=== PATIENT | male | born 1935 | race Caucasian/White ===

== ENCOUNTER → 2018-11-27 | Day surgery (SDC) | payer BC ==
[2018-11-23 10:53] LABS: BASOPHILS % 0.5 % (0.0-1.0); EOSINOPHILS # (AUTO) 0.3 (0.0-0.4); EOSINOPHILS % 4.7 % (0.0-6.0); HEMATOCRIT 40.2 % (38.2-49.6); HEMOGLOBIN 13.3 g/dL (14.0-18.0); LYMPHOCYTES # (AUTO) 1.8 (1.0-3.2); LYMPHOCYTES % 27.4 % (18.0-39.1); MEAN CORPUSCULAR HEMOGLOBIN 30.1 pg (28-32); MEAN CORPUSCULAR HGB CONC 33.1 g/dL (31-35); MONOCYTES # (AUTO) 0.7 (0.2-0.8); MONOCYTES % 10.2 % (4.4-11.3); NEUTROPHILS # (AUTO) 3.8 (2.1-6.9); NEUTROPHILS % 56.9 % (38.7-80.0); PLATELET COUNT 155 x10e3/uL (140-360); RED BLOOD COUNT 4.42 x10e6/uL (4.3-5.7); RED CELL DISTRIBUTION WIDTH 13.7 % (11.7-14.4)
[2018-11-23 11:23] LABS: ALBUMIN 3.9 g/dL (3.5-5.0); ALBUMIN/GLOBULIN RATIO 1.4 (0.8-2.0); ANION GAP 12.1 mmol/L (8-16); CALCIUM 9.6 mg/dL (8.4-10.2); CREATININE, SERUM 1.47 mg/dL (0.72-1.25); POTASSIUM 4.1 mmol/L (3.5-5.1)
--- NOTE | 2018-11-23 16:30 | NUR ---
Dr. Welch notified of creatinine 1.47 and eGFR 46. no new orders at this time.
[2018-11-27] VITALS (7 sets, daily range): BP systolic 153–197; BP diastolic 64–96
[~2018-11-27] VITALS: Ht 177.8 cm; Wt 90.7 kg
[~2018-11-27] MED LIST: ALLOPURINOL PO; ALLOPURINOL300 MG PO; ALPRAZOLAM 0.5 MG TAB ONE; AMLODIPINE BESYL5 MG PO; ASPIR 8181 MG PO; AZITHROMYCIN 500MG/NS 250 ML 250 ML ONE; AZOR 5-40 MG T1 EACH PO; Aspirin PO; BENICAR20 MG PO; CEFDINIR300 MG PO; CEFTRIAXONE SOD 1 GM/NS 50 ML 50 ML IV ONE; CREON DR 24,001 EACH PO; CREON PO; D 3 PO; DIPHENHYDRAMINE HCL 25 MG CAP ONE; DOXAZOSIN MESYLA1 MG PO; DOXAZOSIN MESYLA2 MG PO; FENTANYL CITRATE/PF 100MCG/2 ML INJ ONE; FERROUS PO; FUROSEMIDE20 MG PO; GABAPENTIN300 MG PO; GLIPIZIDE XL5 MG PO; HEPARIN SOD (PORCINE) 1000 UNIT/ML 30ML ONE; HEPARIN SOD/SOD CHLORIDE 2,000 ML ONE; HYDRALAZINE HCL25 MG PO; HYDROCHLOROTHIA25 MG PO; IOPAMIDOL 370 MG/ML 200 ML INFUS..BTL INJ ONE; LAXATIVE5 M1 PO; LIDOCAINE HCL 2% LOCAL 20 ML VIAL ONE; LIPITOR40 MG PO; METOPROLOL SUCC25 MG PO; MIDAZOLAM HCL 2 MG/2 ML VIAL ONE; MUCINEX DM ER1 EACH PO; NIFEDIPINE ER30 M1 PO; NIFEDIPINE ER60 MG PO; NITROGLYCERIN/D5W 200 MCG/ML 250 ML ONE; RANITIDINE HCL150 M1 PO; SODIUM CHLORIDE 0.9% 1000ML 1,000 ML ONE; SODIUM CHLORIDE 0.9% 250ML 250 ML ONE; STOOL SOFTENER250 MG PO; SUCRALFATE1 GM PO; VERAPAMIL HCL 2.5 MG/ML 2 ML VIAL ONE; VITAMIN D350000 UNIT PO; ZITHROMAX500 MG PO
--- NOTE | 2018-11-27 11:45 | NUR ---
pt in ACU 10, prepped for procedure. Alert oriented and appropriate, PERRLA, respirations even and unlabored to room air. Pulses x4 extremities equal and faint. + allens to right radial. Cap fill brisk < 3 sec. [place] bilateral Skin warm and dry integrity appears intact in general. IV 20g to left forearm started and presents healthy w/o s/s of infiltration or complaint. NS 0.9% started at 100ml/hr per dial flow. Abdomen soft and supple. pt offered toileting, denies need to urinate or defecate. Personal affects with patient. Family at bedside. Pt and family verbalizes understanding of POC. Pre-Op Meds benadryl and xanax given. bed low and locked, side rails up x2 and call light at side. -cgf
--- NOTE | 2018-11-27 15:00 | NUR ---
Attempt to remove 2ml from TR band. immediate bleed back, air reinstilled. continue to observe. + neurovascular function present. pt arouses and quickly back to rest
--- NOTE | 2018-11-27 15:35 | NUR ---
2nd Attempt to remove 2ml from TR band. immediate bleed back, air reinstilled. continue to observe. + neurovascular function present. pt arouses and quickly back to rest
--- NOTE | 2018-11-28 03:02 | Operative Report ---
DATE OF PROCEDURE: 11/27/2018 SURGEON: Lev Welch MD INDICATIONS: 1. Coronary artery disease with abnormal stress test. 2. Peripheral arterial disease with claudication. PROCEDURES PERFORMED: 1. Left heart catheterization, selective coronary angiography. 2. Abdominal aortogram. 3. Selective catheter placed in the right radial artery to the left iliac artery (third-order catheter placement with unilateral extremity angiogram). 4. Deployment of right groin TR band. COMPLICATIONS: None. RECOMMENDATIONS: Referral for coronary artery bypass surgery, staged intervention of the aorta and iliac arteries. DESCRIPTION OF PROCEDURE: Access obtained in the right radial artery. 5-Portuguese sheath was placed. Coronary angiography demonstrated heavily calcified coronary arteries, left main 50% stenosis and ostial circumflex 90% stenosis. Ramus intermedius and obtuse margin have mild disease. Left anterior descending artery proximal 90% stenosis. Diagonal artery ostial 90% stenosis. 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 Right coronary artery heavily calcified, 80% proximal and 50% mid stenosis. LV end-diastolic pressure of 4. No gradient across the aortic valve on pullback. 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 Left iliac artery appeared to have a stenosis. The catheter then advanced in the right radial artery. The left iliac artery has 80% stenosis. The left common iliac artery heavily calcified. Bilateral femoral popliteal arteries and diffuse 50% to 60% stenosis. Two-vessel runoff to both legs. No intervention was deemed necessary at this point. Right wrist TR band applied. The patient was discharged home same day with instructions for close followup and referral for coronary artery bypass surgery. MD MICHAEL Payne/DANGL /[id number]
--- OUTSIDE RECORDS SUMMARY | 2018-11-28 10:10 | XMS REPORT | Encounter Summary ---
Author Organization Unknown Address [address] [place] [address] Phone [phone] Reason for Visit Medical Complaint Instructions 1. Leukocytes in urine urinalysis, dipstick culture, urine Levaquin 500 mg tablet urinary tract infections in men: care instructions 2. Elevated blood pressure elevated blood pressure: care instructions dash diet: care instructions blood pressure monitoring education 3. Body mass index 25-29 - overweight learning about healthy weight Discussion Note: None recorded. Plan of Care Patient Instructions A urinary tract infection, or UTI, is a general term for an infection anywhere between the kidneys and the urethra (where urine comes out). Most UTIs are bladder infections. They often cause pain or burning when you urinate. UTIs are caused by bacteria and can be cured with antibiotics. Be sure to complete your treatment so that the infection goes away. How can you care for yourself at home? Take your antibiotics as directed. Do not stop taking them just because you feel better. You need to take the full course of antibiotics. Drink extra water and other fluids for the next day or two. This may help wash out the bacteria that are causing the infection. (If you have kidney, heart, or liver disease and have to limit fluids, talk with your doctor before you increase your fluid intake.) Avoid drinks that are carbonated or have caffeine. They can irritate the bladder. Urinate often. Try to empty your bladder each time. To relieve pain, take a hot bath or lay a heating pad set on low over your lower belly or genital area. Never go to sleep with a heating pad in place. To prevent UTIs Drink plenty of water each day. This helps you urinate often, which clears bacteria from your system. (If you have kidney, heart, or liver disease and have to limit fluids, talk with your doctor before you increase your fluid intake.) Urinate when you need to. Urinate right after you have sex. Change sanitary pads often. Avoid douches, bubble baths, feminine hygiene sprays, and other feminine hygiene products that have deodorants. After going to the bathroom, wipe from front to back. When should you call for help? Call your doctor now or seek immediate medical care if: Symptoms such as fever, chills, nausea, or vomiting get worse or appear for the first time. You have new pain in your back just below your rib cage. This is called flank pain. There is new blood or pus in your urine. You have any problems with your antibiotic medicine. Watch closely for changes in your health, and be sure to contact your doctor if: You are not getting better after taking an antibiotic for 2 days. Your symptoms go away but then come back. Reminders Provider Appointments None recorded. Lab Urinalysis, Dipstick 06/04/2018 [facility] Culture, Urine 06/04/2018 [facility] Referral None recorded. Procedures None recorded. Surgeries None recorded. Imaging None recorded. Medications Name Start Date allopurinol 300 mg tablet TK 1 T PO QD amlodipine 5 mg tablet TK 1 T PO QD atorvastatin 40 mg tablet TK 1 T PO HS cefadroxil 500 mg capsule Creon 24,000-76,000-120,000 unit capsule,delayed release TK ONE C PO TID doxazosin 4 mg tablet TK 1 T PO HS gabapentin 300 mg capsule glipizide ER 5 mg tablet, extended release 24 hr TK 1 T PO BID Levaquin 500 mg tablet Take 1 tablet every 24 hours by oral route for 14 days. losartan 50 mg tablet metoprolol succinate ER 25 mg tablet,extended release 24 hr TK 1 T PO QD mupirocin 2 % topical ointment ranitidine 150 mg tablet TK 1 T PO BID SF 5000 Plus 1.1 % dental cream U UTD sucralfate 1 gram tablet TK 1 T PO TID Medications Administered None recorded. Vitals Height Weight BMI Blood Pressure 5 ft 10 in 200 lbs 28.7 kg/m2 132/84 mm[Hg] Lab Results Date Name Specimen Result Interpretation Description Value Range Status Address Urinalysis, Dipstick Color : Isabel [facility]: [address] [place] [address] Clarity : Turbid [facility]: [address] [place] [address] Leukocytes : Large [facility]: [address] [place] [address] Nitrites : Negative [facility]: [address] [place] [address] Urobilinogen : Normal [facility]: 9 [facility] Protein : 300 [facility]: 9 [facility] Ph : 5.0 [facility]: 9 [facility] Blood : Large [facility]: 9 [facility] Specific [place] : 1.010 [facility]: 9 [facility] Ketones : Negative [facility]: 9 [facility] Bilirubin : Negative [facility]: 9 [facility] Glucose Negative [facility]: 9 [facility] Allergies Code Code System Name Reaction Severity Status Onset Penicillins Active Problems Name Status Onset Date Source Diabetes Mellitus Active 06/04/2018 Hyperlipidemia Active 06/04/2018 Gout Active 06/04/2018 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 History of Present Illness [id number] Reported By: Patient HPI: Duration: started 1 day. Context: no prior history of STDs, no known exposure to STD. Associated Symptoms: no muscle aches, no fever/chills, no headache, no penile lesions/sores, no scrotal lesions/sores, no penile discharge, no flank pain, no jaundice, no blood in the urine, no pain during urination, urinary frequency; pt has hx of BPH Review of Systems:ROS as noted in the HPI Review of Systems Basic Reported By: Patient Physical Exam Adult Basic, Adult Male Complete Reported By: Patient Constitutional: General Appearance: healthy-appearing, well-nourished, well-developed, overweight. Level of Distress: NAD. Ambulation: ambulating normally Lungs: Respiratory effort: no dyspnea, no tachypnea, no use of accessory muscles, no intercostal retractions. Auscultation: breath sounds normal, good air movement Cardiovascular: Heart Auscultation: no murmurs, regularly irregular Abdomen: Inspection and Palpation: soft, no tenderness, no guarding, no rebound tenderness, no masses, no CVA tenderness
--- OUTSIDE RECORDS SUMMARY | 2018-11-28 10:10 | XMS REPORT | Summary of Care ---
Author Author ELISEO TRUJILLO M.D. Unknown Address [facility] Phone Unavailable Care Team Providers Care Foam Tank Laminator Name Role Phone ELISEO TRUJILLO M.D. Unavailable Unavailable KHADRA PERALTA MD Unavailable ELISEO TRUJILLO MD Unavailable Unavailable Unavailable Unavailable Functional Status Name Dates Details Functional status health issues are not documented Status: Name Dates Details Cognitive status health issues are not documented Status: Problems Name Dates Details High blood pressure (401.9, I10) Status: Active Bilateral impacted cerumen (380.4, H61.23) Status: Active Bilateral hearing loss (389.9, H91.93) Status: Active Medications Name Dates Details Metoprolol Succinate ER TB24 Active amLODIPine Besylate TABS * Refills: 0 Active Gabapentin TABS * Refills: 0 Active Atorvastatin Calcium TABS * Refills: 0 Active Doxazosin Mesylate TABS * Refills: 0 Active Allopurinol TABS * Refills: 0 Active glipiZIDE TABS * Refills: 0 Active Sucralfate TABS * Refills: 0 Active Allergies and Adverse Reactions Name Dates Details Allergy history not documented Status: Procedures Procedure Dates Details [O] Basic Audiometry Screen Date: 14-Nov-2018 History of Knee Replacement Completed History of Heart Surgery Completed History of Gallbladder Surgery Completed Immunization Name Dates Details Immunizations not documented Family History Name Dates Details No pertinent family history (V49.89, Z78.9) Comments: Other Status: Active Social History Name Dates Details - Status: Name Dates Details Never smoker Vital Signs Date Test Result Details [id number] Weight 205.125 lb Status: Height 70 in Status: Body Mass Index Calculated 29.43 kg/m2 Status: Body Surface Area Calculated 2.11 m2 Status: Results Date Description Value Details Results not documented Plan of Care Name Dates Details Planned Observations Planned Goals not documented Planned Encounters Appointment; IAN CUMMINGS On: 27-Nov-2018 14:00 Interventions Provided Labs/Procedures/Imaging* [O] Basic Audiometry Screen; To Be Done: 14 Nov 2018 * Tobacco Use Screening; Done: 14 Nov 2018 Plan* 1. Cerumen removed. Obtain ATR. Fu after testing. Instructions Name Dates Details Instructions not documented Encounters Appointment; ELISEO TRUJILLO M.D. Encounter Diagnosis: Problem not documented On: 14-Nov-2018 14:45
--- OUTSIDE RECORDS SUMMARY | 2018-11-28 10:10 | XMS REPORT | Continuity of Care Document ---
Author Author [employer] Address Unknown Phone Unavailable Care Team Providers Care Air Brake Adjuster Name Role Phone Zumobi Unavailable Unavailable Problems Problem Status Onset Date Classification Date Reported Comments Source Body mass index 25-29 - overweight 06/04/2018 Diagnosis 06/04/2018 [facility] Elevated blood pressure 06/04/2018 Diagnosis 06/04/2018 [facility] Leukocytes in urine 06/04/2018 Diagnosis 06/04/2018 [facility] Diabetes mellitus 06/04/2018 Problem 06/04/2018 [facility] Hyperlipidemia 06/04/2018 Problem 06/04/2018 [facility] Gout 06/04/2018 Problem 06/04/2018 [facility] Hypertelorism 06/04/2018 Problem 06/04/2018 [facility] Medications Medication Details Route Status Patient Instructions Ordering Provider Order Date Source Allopurinol 300 MG Oral Tablet allopurinol 300 mg tablet TK 1 T PO QD Active [facility] Amlodipine 5 MG Oral Tablet amlodipine 5 mg tablet TK 1 T PO QD Active [facility] atorvastatin 40 MG Oral Tablet atorvastatin 40 mg tablet TK 1 T PO HS Active [facility] Cefadroxil 500 MG Oral Capsule cefadroxil 500 mg capsule Active [facility] Amylases 464811 UNT / Endopeptidases 13082 UNT / Lipase 34185 UNT Delayed Release Oral Capsule [Creon] Creon 24,000-76,000-120,000 unit capsule,delayed release TK ONE C PO TID Active [facility] Doxazosin 4 MG Oral Tablet doxazosin 4 mg tablet TK 1 T PO HS Active [facility] gabapentin 300 MG Oral Capsule gabapentin 300 mg capsule Active [facility] 24 HR Glipizide 5 MG Extended Release Oral Tablet glipizide ER 5 mg tablet, extended release 24 hr TK 1 T PO BID Active [facility] Levofloxacin 500 MG Oral Tablet [Levaquin] Levaquin 500 mg tablet Take 1 tablet every 24 hours by oral route for 14 days. Active [facility] Losartan Potassium 50 MG Oral Tablet losartan 50 mg tablet Active [facility] 24 HR metoprolol succinate 25 MG Extended Release Oral Tablet metoprolol succinate ER 25 mg tablet,extended release 24 hr TK 1 T PO QD Active [facility] Mupirocin 0.02 MG/MG Topical Ointment mupirocin 2 % topical ointment Active [facility] Ranitidine 150 MG Oral Tablet ranitidine 150 mg tablet TK 1 T PO BID Active [facility] Sodium Fluoride 0.011 MG/MG Toothpaste SF 5000 Plus 1.1 % dental cream U UTD Active [facility] Sucralfate 1000 MG Oral Tablet sucralfate 1 gram tablet TK 1 T PO TID Active [facility] Allergies, Adverse Reactions, Alerts Substance Category Reaction Severity Reaction type Status Date Reported Comments Source Penicillins Allergy to substance 06/04/2018 [facility] Immunizations Immunization Date Given Site Status Last Updated Comments Source influenza, injectable, quadrivalent 04/14/2018 completed [facility] Results Order Name Results Value Reference Range Date Interpretation Comments Source Urinalysis macro (dipstick) panel - Urine COLOR : Isabel 06/04/2018 [facility] Urinalysis macro (dipstick) panel - Urine CLARITY : Turbid 06/04/2018 [facility] Urinalysis macro (dipstick) panel - Urine LEUKOCYTES : Large 06/04/2018 [facility] Urinalysis macro (dipstick) panel - Urine NITRITES : Negative 06/04/2018 [facility] Urinalysis macro (dipstick) panel - Urine UROBILINOGEN : Normal 06/04/2018 [facility] Urinalysis macro (dipstick) panel - Urine PROTEIN : 300 06/04/2018 [facility] Urinalysis macro (dipstick) panel - Urine pH : 5.0 06/04/2018 [facility] Urinalysis macro (dipstick) panel - Urine BLOOD : Large 06/04/2018 [facility] Urinalysis macro (dipstick) panel - Urine SPECIFIC GRAVITY : 1.010 06/04/2018 [facility] Urinalysis macro (dipstick) panel - Urine KETONES : Negative 06/04/2018 [facility] Urinalysis macro (dipstick) panel - Urine BILIRUBIN : Negative 06/04/2018 [facility] Urinalysis macro (dipstick) panel - Urine GLUCOSE Negative 06/04/2018 [facility] Pathology Reports No Data Provided for This Section Diagnostic Reports No Data Provided for This Section Consultation Notes No Data Provided for This Section Discharge Summaries No Data Provided for This Section History and Physicals No Data Provided for This Section Vital Signs Vital Sign Value Date Comments Source Diastolic (mm Hg) 84 06/04/2018 [facility] Height 70 06/04/2018 [facility] Systolic (mm Hg) 132 06/04/2018 [facility] Weight 200 06/04/2018 [facility] Encounters Location Location Details Encounter Type Encounter Number Reason For Visit Attending Provider ADM Date DC Date Status Source [place] - [facility] - [id number] [facility]P-C: [address] [place] [address], Ph. [id number] Krystina Mackeywe 06/04/2018 [facility] [place] - [facility] - [id number] Krystina Rashid, LAWN SPRINKLER INSTALLER-C: [address] [place] [address], Ph. [id number] Krystina Mackeywe 06/04/2018 [facility] Procedures Procedure Code Date Perfomer Comments Source Cholecystectomy [facility] Assessment and Plan No Data Provided for This Section Plan of Care No Data Provided for This Section Social History Social History Date Source Smoking Status Never Smoker 06/04/2018 [facility] Family History No Data Provided for This Section Advance Directives No Data Provided for This Section Functional Status No Data Provided for This Section
--- OUTSIDE RECORDS SUMMARY | 2018-11-28 10:10 | XMS REPORT | Encounter Summary ---
Author Organization Unknown Address [address] [place] [address] Phone [phone] Reason for Visit Medical Complaint Instructions 1. [...] Urinalysis, Dipstick Color : Isabel [facility]: [address] [place] [address] Clarity : Turbid [facility]: [address] [place] [address] Leukocytes : Large [facility]: [address] [place] [address] Nitrites : Negative [facility]: [address] [place] [address] Urobilinogen : Normal [facility]: [facility] Protein : 300 [facility]: 9 [facility] Ph : 5.0 [facility]: [facility] Blood : Large [facility]: 9 [facility] Specific [place] : 1.010 [facility]: [facility] Ketones : Negative [facility]: [facility] Bilirubin : Negative [facility]: [facility] Glucose Negative [facility]: 9 [facility] Allergies Code Code System Name Reaction Severity [...] Index 25-29 - Overweight [facility]: [address] [place] [address], Ph. History of Present Illness [id number] Reported By: Patient HPI: Duration: started 1 [...] normal, good air movement Cardiovascular: Heart Auscultation: RRR, no murmurs Abdomen: Inspection and Palpation: soft, no tenderness, no guarding, no rebound tenderness, no masses, no CVA tenderness
--- OUTSIDE RECORDS SUMMARY | 2018-11-28 10:10 | XMS REPORT ---
Author Author [facility] Address Unknown Phone Unavailable Care Team Providers Care Event Management Consultant Name Role Phone Unavailable Unavailable Payers Payer Name Policy Type Policy Number Effective Date Expiration Date Problems This patient has no known problems. Allergies, Adverse Reactions, Alerts Allergy Name Allergy Type Status Severity Reaction(s) Onset Date Inactive Date Treating Clinician Comments Penicillins DA Active MARY 2014-12-31 00:00:00 Medications This patient has no known medications.
== END | disposition home or self-care (01) ==
LOC: CATH LAB 11:37
PROVIDERS: ATTEND Internal Medicine Interventional Cardiology
DX: I25.10 Atherosclerotic heart disease of native coronary artery without angina pectoris (principal); I70.213 Atherosclerosis of native arteries of extremities with intermittent claudication, bilateral legs; I25.41 Coronary artery aneurysm; I72.2 Aneurysm of renal artery; R94.39 Abnormal result of other cardiovascular function study; I11.0 Hypertensive heart disease with heart failure; I50.9 Heart failure, unspecified; I48.0 Paroxysmal atrial fibrillation; G47.33 Obstructive sleep apnea (adult) (pediatric); Z01.812 Encounter for preprocedural laboratory examination; Z79.01 Long term (current) use of anticoagulants; Z79.84 Long term (current) use of oral hypoglycemic drugs; Z79.82 Long term (current) use of aspirin; Z68.37 Body mass index [BMI] 37.0-37.9, adult
CPT/HCPCS: 36247; 36415; 75630; 80053; 85025; 93458; C1769 ×2; C1887; J1644; J2001; J2250; J3010; J7030; Q9967

== ENCOUNTER 2018-11-28 15:47 | Inpatient (IN) | payer BC, MEDICARE ==
[~2018-11-28] VITALS: Ht 167.6 cm; Wt 88.7 kg
[~2018-11-28 15:47] MED LIST changes: -ALPRAZOLAM 0.5 MG TAB ONE; -AZITHROMYCIN 500MG/NS 250 ML 250 ML ONE; -BENICAR20 MG PO; -CEFDINIR300 MG PO; -CEFTRIAXONE SOD 1 GM/NS 50 ML 50 ML IV ONE; -DIPHENHYDRAMINE HCL 25 MG CAP ONE; -FENTANYL CITRATE/PF 100MCG/2 ML INJ ONE; -HEPARIN SOD (PORCINE) 1000 UNIT/ML 30ML ONE; -HEPARIN SOD/SOD CHLORIDE 2,000 ML ONE; -HYDRALAZINE HCL25 MG PO; -IOPAMIDOL 370 MG/ML 200 ML INFUS..BTL INJ ONE; -LIDOCAINE HCL 2% LOCAL 20 ML VIAL ONE; -MIDAZOLAM HCL 2 MG/2 ML VIAL ONE; -MUCINEX DM ER1 EACH PO; -NIFEDIPINE ER30 M1 PO; -NIFEDIPINE ER60 MG PO; -NITROGLYCERIN/D5W 200 MCG/ML 250 ML ONE; -SODIUM CHLORIDE 0.9% 1000ML 1,000 ML ONE; -SODIUM CHLORIDE 0.9% 250ML 250 ML ONE; -VERAPAMIL HCL 2.5 MG/ML 2 ML VIAL ONE; -ZITHROMAX500 MG PO
--- OUTSIDE RECORDS SUMMARY | 2018-11-28 15:51 | XMS REPORT | Continuity of Care Document ---
Author Author [employer] Address Unknown Phone Unavailable Care Team Providers Care Senior Corporate Accountant Name Role Phone Qire Unavailable Unavailable Problems Problem Status Onset Date [...] cefadroxil 500 mg capsule Active [facility] Amylases 316087 UNT / Endopeptidases 75203 UNT / Lipase 73990 UNT Delayed Release Oral Capsule [Creon] Creon [...] Date Status Source [place] - [facility] - [id number] BRYAN العليP-C: [address] [place] [address], Ph. [id number] Krystina Mackeywe 06/04/2018 [facility] [place] - [facility] - [id number] Krystina Rashid, HEMOTHERAPIST-C: [address] [place] [address], Ph. [id number] Krystina Mackeywe 06/04/2018 [facility] Procedures Procedure Code [...]
[2018-11-28 17:50] LABS: BASOPHILS % 0.2 % (0.0-1.0); EOSINOPHILS # (AUTO) 0.1 (0.0-0.4); EOSINOPHILS % 0.4 % (0.0-6.0); HEMOGLOBIN 12.9 g/dL (14.0-18.0); LYMPHOCYTES # (AUTO) 1.2 (1.0-3.2); LYMPHOCYTES % 10.4 % (18.0-39.1); MEAN CORPUSCULAR HEMOGLOBIN 30.4 pg (28-32); MEAN CORPUSCULAR HGB CONC 33.9 g/dL (31-35); MEAN CORPUSCULAR VOLUME 89.6 fL (81-99); MONOCYTES # (AUTO) 0.8 (0.2-0.8); NEUTROPHILS # (AUTO) 9.7 (2.1-6.9); NEUTROPHILS % 81.5 % (38.7-80.0); PLATELET COUNT 144 x10e3/uL (140-360); RED BLOOD COUNT 4.24 x10e6/uL (4.3-5.7); RED CELL DISTRIBUTION WIDTH 13.7 % (11.7-14.4)
[2018-11-28 17:56] LABS: BILIRUBIN,URINE NEGATIVE (NEGATIVE); CLARITY,URINE SL CLOUDY (CLEAR); COLOR,URINE YELLOW (YELLOW); KETONES,URINE NEGATIVE (NEGATIVE); LEUKOCYTE ESTERASE ,URINE NEGATIVE (NEGATIVE); NITRITE,URINE NEGATIVE (NEGATIVE); PROTEIN,URINE DIPSTICK 2+ (NEGATIVE); URINE UROBILINOGEN 0.2 mg/dL (0.2 - 1)
[2018-11-28 18:00] LABS: INR 1.01; PROTHROMBIN TIME 13.8 seconds (11.9-14.5)
[2018-11-28 18:01] LABS: PARTIAL THROMBOPLASTIN TIME 31.2 seconds (23.8-35.5)
[2018-11-28 18:10] LABS: ALBUMIN 3.8 g/dL (3.5-5.0); ALBUMIN/GLOBULIN RATIO 1.5 (0.8-2.0); CALCIUM 9.8 mg/dL (8.4-10.2); CREATININE, SERUM 2.01 mg/dL (0.72-1.25)
[2018-11-28 18:14] LABS: CREATINE KINASE MB 1.1 ng/mL (0-5.0)
[2018-11-28 18:19] LABS: BACTERIA,URINE MANY /HPF; EPITHELIAL CELLS,URINE RARE /LPF; RBC,URINE 0-5 /HPF (0-5); WBC,URINE (MAN) 0-5 /HPF (0-5)
--- NOTE | 2018-11-28 19:20 | Diagnostic Imaging Report ---
EXAMINATION: CHEST 2 VIEWS INDICATION: ^fever COMPARISON: None FINDINGS: TUBES and LINES: None. LUNGS: Nodular opacities in the left upper lung worrisome for pneumonia. PLEURA: No pleural effusion or pneumothorax. HEART AND MEDIASTINUM: The cardiomediastinal silhouette is unremarkable. BONES AND SOFT TISSUES: No acute osseous lesion. Soft tissues are unremarkable. UPPER ABDOMEN: No free air under the diaphragm. IMPRESSION: Nodular opacities in left upper lung worrisome for pneumonia in the appropriate clinical context. If indicated CT scan may be of benefit. Follow-up imaging is indicated to document clearing. Signed by: Dr. Adolfo Ruiz M.D. on 11/28/2018 7:17 PM
[2018-11-28] MEDS ORDERED: ONDANSETRON HCL INJ 2MG/ML 2ML 2 MG/ML VIAL IV PRN (20:15)
[2018-11-28] MEDS: CEFTRIAXONE SOD 1 GM/NS 50 ML 50 ML IV SCH (21:30)
--- OUTSIDE RECORDS SUMMARY | 2018-11-28 21:59 | XMS REPORT | Continuity of Care Document ---
Author Author [employer] Address Unknown Phone Unavailable Care Team Providers Care Job Coach Name Role Phone DVTel Unavailable Unavailable Problems Problem Status Onset Date [...] cefadroxil 500 mg capsule Active [facility] Amylases 545902 UNT / Endopeptidases 52287 UNT / Lipase 48009 UNT Delayed Release Oral Capsule [Creon] Creon [...] Date Status Source [place] - [facility] - [id number] BRYAN العليP-C: [address] [place] [address], Ph. [id number] Krystina Mackeywe 06/04/2018 [facility] [place] - [facility] - [id number] Krystina Rashid, ROVING MACHINE OPERATOR-C: [address] [place] [address], Ph. [id number] Krystina Mackeywe 06/04/2018 [facility] Procedures Procedure Code [...]
[2018-11-28] MEDS: AZITHROMYCIN 500MG/NS 250 ML 250 ML IV SCH (22:11)
[2018-11-29] VITALS (12 sets, daily range): BP systolic 138–202; BP diastolic 64–100
--- NOTE | 2018-11-29 00:30 | NUR ---
Patient arrived from the ER on stretcher admitted for fever/pneumonia. A/Ox3 with VS stable with BP at 174/100. Patient stated he had heart cath a couple of days ago and supposedly have a quadruple bypass today (11/29/2018) at the [facility]. The patient is on telemetry #16 with SR/bigeminal/PAC/PVC. Call light within reach, bed height low, wheels lock, and side rails up x2.
--- NOTE | 2018-11-29 06:29 | Diagnostic Imaging Report ---
Examination: Single AP view of the chest. COMPARISON: 11/28/2018 INDICATION: Fever DISCUSSION: The lungs remain well-inflated. Nodular opacities in the left upper lung are again noted and may be calcified. No new consolidation or effusion. Stable cardiomediastinal contour with tortuosity and atherosclerotic calcification of the thoracic aorta. No overt pulmonary edema. No acute osseous abnormality. IMPRESSION: Unchanged left upper lung nodular opacities. Considerations include active infection or sequela of prior granulomatous disease. Follow-up chest x-ray in 8 weeks is suggested to document stability or resolution as previously discussed. Signed by: Dr. Kodi Lopez M.D. on 11/29/2018 6:26 AM
--- NOTE | 2018-11-29 07:02 | NUR ---
RECEIVED PATIENT RESTING IN BED. NO ACUTE DISTRESS NOTED. DENIES PAIN OR DISCOMFORT. CALL LIGHT WITHIN REACH. BED IN THE LOWEST POSITION.
[2018-11-29 07:03] LABS: BASOPHILS % 0.1 % (0.0-1.0); EOSINOPHILS # (AUTO) 0.2 (0.0-0.4); HEMOGLOBIN 12.3 g/dL (14.0-18.0); LYMPHOCYTES # (AUTO) 1.7 (1.0-3.2); MEAN CORPUSCULAR HEMOGLOBIN 30.5 pg (28-32); MEAN CORPUSCULAR HGB CONC 34.2 g/dL (31-35); MEAN CORPUSCULAR VOLUME 89.3 fL (81-99); MONOCYTES # (AUTO) 0.9 (0.2-0.8); MONOCYTES % 10.2 % (4.4-11.3); NEUTROPHILS # (AUTO) 6.2 (2.1-6.9); NEUTROPHILS % 68.3 % (38.7-80.0); PLATELET COUNT 140 x10e3/uL (140-360); RED BLOOD COUNT 4.03 x10e6/uL (4.3-5.7); RED CELL DISTRIBUTION WIDTH 13.9 % (11.7-14.4)
[2018-11-29 07:20] LABS: ANION GAP 10.7 mmol/L (8-16); CALCIUM 9.2 mg/dL (8.4-10.2); CREATININE, SERUM 1.66 mg/dL (0.72-1.25); POTASSIUM 3.7 mmol/L (3.5-5.1)
[2018-11-29 07:29] LABS: CREATINE KINASE MB 1.3 ng/mL (0-5.0)
[2018-11-29] MEDS ORDERED: SODIUM CHLORIDE 0.9% 250ML 250 ML ONE (08:20)
[2018-11-29] MEDS: AZITHROMYCIN 500MG/NS 250 ML 250 ML IV SCH (09:10)
[2018-11-29] MEDS ORDERED: ACETAMINOPHEN/CODEINE 300MG - 30MG TAB PO PRN (09:30)
[2018-11-29] MEDS ORDERED: ACETAMINOPHEN 325 MG TAB PO PRN (09:30)
[2018-11-29] MEDS ORDERED: MELATONIN 5 MG TABLET PO PRN (09:30)
[2018-11-29] MEDS ORDERED: ALBUTEROL/IPRATROPIUM 3 ML NEB NEB PRN (10:00)
[2018-11-29] MEDS ORDERED: AMLODIPINE BESYLATE 5 MG TAB PO SCH (10:30)
[2018-11-29] MEDS: METOPROLOL SUCCINATE 25 MG TAB XL PO SCH (10:57)
[2018-11-29] MEDS: GUAIFENESIN 600MG/DEXTROMETHORPHAN 30MG TABSR PO SCH ×2 (10:57→20:39)
--- NOTE | 2018-11-29 10:57 | NUR ---
Patient's BP 164/82 morning dose of Metoprolol 25mg PO and Amlodipine 5mg PO administered at this time. Will continue to monitor.
[2018-11-29] MEDS: SUCRALFATE 1 GM TAB PO SCH ×2 (10:58→16:12)
[2018-11-29] MEDS ORDERED: ONDANSETRON HCL 4 MG ORAL DISINTEGRATING TAB PO PRN (11:15)
[2018-11-29] MEDS ORDERED: DEXTROSE 50% SYRINGE 50 ML IV PRN (12:15)
[2018-11-29] MEDS: HYDRALAZINE HCL 20 MG/ML VIAL IV PRN ×2 (12:37→23:44)
--- NOTE | 2018-11-29 12:37 | NUR ---
Patient's BP 182/72, hydralazine 10mg IV PRN administered at this time. Will continue to monitor.
[2018-11-29] MEDS: ALBUTEROL/IPRATROPIUM 3 ML NEB NEB SCH ×2 (14:30→20:07)
--- NOTE | 2018-11-29 14:31 | NUR ---
PT WOULD LIKE TO BE HHOME FOR A FOOTBALL GAME TUESDAY THAT IS NOT ON ONE OF OUR CHANNELS
[2018-11-29] MEDS: GABAPENTIN 300 MG CAP PO SCH ×2 (14:51→20:39)
[2018-11-29] MEDS ORDERED: CLONIDINE HCL 0.1 MG TAB PO NR (16:00)
[2018-11-29 16:08] LABS: CREATINE KINASE MB 1.7 ng/mL (0-5.0)
[2018-11-29] MEDS: FAMOTIDINE 20 MG TAB PO SCH (16:12)
--- NOTE | 2018-11-29 16:12 | NUR ---
Notified patient's that our pharmacy does not carry medication Creon but ok to continue home medication. Ask to bring in medication and will bring it to pharmacy to be verified and ok to use.
--- NOTE | 2018-11-29 16:12 | NUR ---
Patient's BP 178/64, notified NASIM Umanzor new order received for Clonidine 0.1mg PO x one dose. Medication administered at this time.
[2018-11-29] MEDS: GLIPIZIDE 5 MG TAB ER PO SCH (16:13)
[2018-11-29] MEDS: DOCUSATE SODIUM 100 MG CAP PO SCH (16:13)
[2018-11-29] MEDS: INSULIN LISPRO 100 UNIT/1 ML 3ML VIAL SQ SCH ×2 (16:13→20:40)
[2018-11-29] MEDS ORDERED: AMYLASE PO SCH (17:00)
[2018-11-29] MEDS ORDERED: AMLODIPINE BESYLATE 5 MG TAB PO NR (17:00)
[2018-11-29] MEDS ORDERED: PROTEASE PO SCH (17:00)
[2018-11-29] MEDS ORDERED: LIPASE PO SCH (17:00)
[2018-11-29] MEDS: OLMESARTAN 20 MG TAB PO SCH (17:03)
--- NOTE | 2018-11-29 17:03 | NUR ---
Dr. Vadim Gregory rounded on patient. He was notified of BPs being elevated even though scheduled medications, PRN, and one time dose Clonidine administered. MDgave order for one time dose of Amlodipine 5mg PO, also started patient on Olmesartan 40mg daily starting now. Both medications administered at this time as ordered. Will continue to monitor.
--- NOTE | 2018-11-29 19:15 | NUR ---
REPORT GIVEN TO ONCOMING NURSE. WALKING ROUNDS DONE. PATIENT IS RESTING IN BED. NO ACUTE DISTRESS NOTED AT THIS TIME. NO S/S OF PAIN NOTED. CALL LIGHT WITHIN REACH. BED IN THE LOWEST POSITION.
--- NOTE | 2018-11-29 19:19 | NUR ---
PT IS RESTING IN BED BUT HAS INTERMITTENT CONFUSION . RESPIRATION IS EVEN AND UNLABORED, NO DISTRESS NOTED. BED IN THE LOWEST POSITION, LOCKED, AND BED ALARM ON, AND CALL LIGHT WITHIN REACH. PT REFUSE TO HAVE SCD'S ON. EDUCATED PT ON THE NEED TO KEEP SCD'S, BUT PT STILL REFUSE. WILL CONTINUE TO MONITOR.
--- NOTE | 2018-11-29 20:22 | Consultation ---
DATE OF CONSULTATION: 11/29/2018 Cardiology Consult Note REASON FOR CONSULT: Coronary artery disease and hypertension. CHIEF COMPLAINT: Fever. HISTORY OF PRESENT ILLNESS: The patient is an 83-year-old man, history of CAD, who was recently cath 2 days ago with coronary angiogram showing multivessel CAD requiring outpatient coronary artery bypass graft surgery. However, yesterday at home, he developed some fevers and generally was feeling unwell, so he was sent to the hospital for further evaluation. Currently says he feels a little bit better. No chest pain. No shortness of breath. No palpitations or syncope. No heart failure symptoms. REVIEW OF SYSTEMS: As above, otherwise negative. OUTPATIENT MEDICATIONS: Reviewed. ALLERGIES: REVIEWED. SOCIAL HISTORY: Does not smoke, drink, or abuse drugs. FAMILY HISTORY: Noncontributory. PAST MEDICAL HISTORY: 1. Hypertension. 2. Hyperlipidemia. 3. Diabetes. 4. Coronary artery disease. PHYSICAL EXAMINATION: VITAL SIGNS: Temperature afebrile, pulse 64, respiratory rate 13, blood pressure 178/64, and saturating 96%. GENERAL: Elderly white man, in no acute distress. CARDIOVASCULAR: Regular rate and rhythm. No murmurs, rubs, or gallops. LUNGS: Clear to auscultation bilaterally. ABDOMEN: Soft, nontender, and nondistended. NEURO AND PSYCH: Alert and oriented to person, place, and time. Normal affect. INPATIENT MEDICATIONS: Reviewed. LABORATORY DATA: Reviewed. Shows white count of 11.9 on admission, which is now improved. Troponin negative x1. IMAGING DATA: Reviewed. Chest x-ray shows nodular opacities in the left upper lung, recent for pneumonia. TELEMETRY DATA: Reviewed. Shows normal sinus rhythm. ASSESSMENT: 1. Multivessel coronary artery disease, awaiting outpatient coronary artery bypass grafting. 2. Hypertension. 3. Hyperlipidemia. PLAN: The patient is doing well from a cardiovascular standpoint. We will resume his home outpatient medications including olmesartan, amlodipine, and metoprolol succinate. We will up titrate medications as his blood pressure and renal function indicate. Thank you for this consult. We will continue to follow. MD PHILIP Woodruff/ELTON /[id number]
[2018-11-29] MEDS: ATORVASTATIN 40 MG TAB PO SCH (20:39)
[2018-11-29] MEDS: CEFTRIAXONE SOD 1 GM/NS 50 ML 50 ML IV SCH (20:39)
[2018-11-29] MEDS: ASPIRIN 81 MG CHEW TAB PO SCH (20:39)
[2018-11-29] MEDS: DOXAZOSIN MESYLATE 2 MG TAB PO SCH (20:39)
[2018-11-30] VITALS (9 sets, daily range): BP systolic 135–190; BP diastolic 64–84
[2018-11-30] MEDS: ALBUTEROL/IPRATROPIUM 3 ML NEB NEB SCH ×4 (01:00→19:38)
[2018-11-30 03:48] LABS: BASOPHILS % 0.3 % (0.0-1.0); EOSINOPHILS # (AUTO) 0.1 (0.0-0.4); EOSINOPHILS % 1.8 % (0.0-6.0); HEMATOCRIT 36.5 % (38.2-49.6); HEMOGLOBIN 12.4 g/dL (14.0-18.0); LYMPHOCYTES # (AUTO) 1.3 (1.0-3.2); LYMPHOCYTES % 17.5 % (18.0-39.1); MEAN CORPUSCULAR VOLUME 88.4 fL (81-99); MONOCYTES # (AUTO) 0.8 (0.2-0.8); MONOCYTES % 9.9 % (4.4-11.3); NEUTROPHILS # (AUTO) 5.4 (2.1-6.9); NEUTROPHILS % 70.1 % (38.7-80.0); PLATELET COUNT 135 x10e3/uL (140-360); RED BLOOD COUNT 4.13 x10e6/uL (4.3-5.7); RED CELL DISTRIBUTION WIDTH 13.7 % (11.7-14.4)
[2018-11-30 04:06] LABS: ANION GAP 15.5 mmol/L (8-16); CALCIUM 9.2 mg/dL (8.4-10.2); CREATININE, SERUM 1.42 mg/dL (0.72-1.25); POTASSIUM 3.5 mmol/L (3.5-5.1)
[2018-11-30] MEDS: HYDRALAZINE HCL 20 MG/ML VIAL IV PRN (04:15)
[2018-11-30] MEDS: NIFEDIPINE CR 30 MG TAB PO SCH ×2 (06:00→09:12)
--- NOTE | 2018-11-30 06:29 | NUR ---
THE PT IS CONFUSE AND SAID HE SEES BUGS ON THE FLOOR. PT IS ALSO REFUSING HIS PROCARDIA XL 30MG. MILAD ZARATE NP IS AWARE. PER MILAD TO SCHEDULE IT FOR LATER IN THE DAY. WILL CONTINUE TO MONITOR.
--- NOTE | 2018-11-30 07:25 | NUR ---
Received bedside report from night nurse. Patient resting in bed, no c/o of pain or signs of distress. Bed locked and in low position, call light within reach. Will continue to monitor.
--- NOTE | 2018-11-30 08:35 | NUR ---
PER SHAKILA NURSE PATIENT WAS SEEING BUGS ON THE FLOOR WHEN PRODUCTION CONSULTANT ROUNDED. PATIENT IS STILL SEEING THINGS. CALLED PRODUCTION CONSULTANT, RECEIVED NEW ORDERS FOR AMMONIA LEVEL STAT, CT SCAN OF BRAIN STAT.
[2018-11-30] MEDS ORDERED: AMYLASE PO SCH (09:00)
[2018-11-30] MEDS ORDERED: PROTEASE PO SCH (09:00)
[2018-11-30] MEDS ORDERED: LIPASE PO SCH (09:00)
[2018-11-30] MEDS: DOCUSATE SODIUM 100 MG CAP PO SCH ×2 (09:00→17:45)
[2018-11-30] MEDS ORDERED: AMLODIPINE BESYLATE 10 MG TAB PO SCH (09:00)
[2018-11-30] MEDS: INSULIN LISPRO 100 UNIT/1 ML 3ML VIAL SQ SCH ×4 (09:05→20:46)
[2018-11-30] MEDS: FAMOTIDINE 20 MG TAB PO SCH ×2 (09:11→17:45)
[2018-11-30] MEDS: GABAPENTIN 300 MG CAP PO SCH ×3 (09:11→20:46)
[2018-11-30] MEDS: LIPASE PO SCH ×3 (09:11→20:46)
[2018-11-30] MEDS: AMYLASE PO SCH ×3 (09:11→20:46)
[2018-11-30] MEDS: GLIPIZIDE 5 MG TAB ER PO SCH ×2 (09:11→17:45)
[2018-11-30] MEDS: OLMESARTAN 20 MG TAB PO SCH (09:11)
[2018-11-30] MEDS: PROTEASE PO SCH ×3 (09:11→20:46)
[2018-11-30] MEDS: SUCRALFATE 1 GM TAB PO SCH ×3 (09:11→17:45)
[2018-11-30] MEDS: GUAIFENESIN 600MG/DEXTROMETHORPHAN 30MG TABSR PO SCH ×2 (09:11→20:46)
[2018-11-30] MEDS: METOPROLOL SUCCINATE 25 MG TAB XL PO SCH (09:12)
[2018-11-30] MEDS: ALLOPURINOL 300 MG TAB PO SCH (09:12)
--- NOTE | 2018-11-30 09:15 | NUR ---
Patient leaving unit for CT scan. In stable condition.
--- NOTE | 2018-11-30 09:35 | NUR ---
Patient returned to unit from CT scan. In stable condition, no c/o of pain or signs of distress. Bed locked and in low position, call light placed within reach. at bedside. Will continue to monitor.
[2018-11-30] MEDS: AZITHROMYCIN 500MG/NS 250 ML 250 ML IV SCH (10:02)
--- NOTE | 2018-11-30 10:40 | Diagnostic Imaging Report ---
Examination: CT head without contrast Clinical Indication: Confusion. Technique: Transaxial noncontrast images from the skull base through the vertex were obtained. Sagittal and coronal reformatted images were done. Dose modulation, iterative reconstruction, and/or weight based adjustment of the mA/kV was utilized to reduce the radiation dose to as low as reasonably achievable. Comparison: None. Findings: Scalp: No abnormalities. Bones: Intact. No fractures. No blastic or lytic lesions. Brain sulci: Appropriate for patient's age. Ventricles: Normal in size and configuration. No hydrocephalus. . Extra-axial space: No abnormalities. Parenchyma: There are confluent areas of low-attenuation within posterior periventricular white matter, nonspecific, but could represent microvascular ischemic disease. No masses, hemorrhage, or acute or chronic cortical based vascular insults. Suprasellar region: No abnormalities. Craniocervical junction: The foramen magnum is patent. No Chiari one malformation. Incidental findings: Atherosclerotic calcification of the cavernous and supraclinoid internal carotid and V4 segments of the bilateral vertebral arteries. Impression: 1. No acute intracranial finding. 2. Mild chronic microvascular ischemic change. Signed by: Dr. Angela Padilla M.D. on 11/30/2018 10:37 AM
[2018-11-30] MEDS ORDERED: SODIUM CHLORIDE 0.9% 500ML 500 ML IV ONE (11:30)
--- NOTE | 2018-11-30 12:31 | NUR ---
Patient leaving unit for MRI. Patient in stable condition.
--- NOTE | 2018-11-30 13:28 | NUR ---
Patient returned to unit from MRI. In stable condition, no c/o of pain or signs of distress. Bed locked and in low position, call light within reach. at bedside. Will continue to monitor.
--- NOTE | 2018-11-30 19:02 | Progress Note ---
DATE: 11/30/2018 Cardiology Progress Note SUBJECTIVE: Developed confusion overnight. Has been having some confusion as well as possible hallucinations, now improved during the day. No chest pain or shortness of breath. OBJECTIVE: VITAL SIGNS: Temperature afebrile, pulse 66, respiratory rate 19, blood pressure 148/68, and saturating 95% on room air. GENERAL: An elderly white man, in no acute distress, who appears slightly confused. CARDIOVASCULAR: Regular rate and rhythm. No murmurs, rubs, or gallops. LUNGS: Clear to auscultation bilaterally. ABDOMEN: Soft, nontender, nondistended. Obese. NEURO AND PSYCH: Alert and oriented to person, place, and time. About a little confused. INPATIENT MEDICATIONS: Reviewed. LABORATORY DATA: Reviewed. TELEMETRY DATA: Reviewed. Remains in normal sinus rhythm. ASSESSMENT: 1. Multivessel coronary artery disease, awaiting outpatient coronary artery bypass grafting. 2. Hypertension. 3. Hyperlipidemia. PLAN: Blood pressure is now improved. We will continue to up titrate medications as needed. Neurological workup undergoing for his confusion. CT of the head so far is unremarkable. Stable from a CAD standpoint. No unstable chest pain or other ischemic symptoms. Thank you for this consult. We will continue to follow closely. MD PHILIP Woodruff/ELTON /[id number]
--- NOTE | 2018-11-30 19:08 | NUR ---
Bedside report given to night nurse. Patient sitting in chair, no c/o of pain or signs of distress. at bedside. Call light placed within reach.
--- NOTE | 2018-11-30 19:12 | NUR ---
PT IS SITTING IN THE CHAIR VISITING WITH HIS . RESPIRATION IS EVEN AND UNLABORED, NO DISTRESS NOTED. BED IN THE LOWEST POSITION, LOCKED, AND CALL LIGHT WITHIN REACH. WILL CONTINUE TO MONITOR.
[2018-11-30] MEDS: DOXAZOSIN MESYLATE 2 MG TAB PO SCH (20:46)
[2018-11-30] MEDS: ATORVASTATIN 40 MG TAB PO SCH (20:46)
[2018-11-30] MEDS: CEFTRIAXONE SOD 1 GM/NS 50 ML 50 ML IV SCH (20:46)
[2018-11-30] MEDS: ASPIRIN 81 MG CHEW TAB PO SCH (20:46)
[2018-12-01] VITALS (12 sets, daily range): BP systolic 152–186; BP diastolic 67–90
[2018-12-01] MEDS: ALBUTEROL/IPRATROPIUM 3 ML NEB NEB SCH ×4 (01:30→19:37)
[2018-12-01 04:01] LABS: BASOPHILS % 0.3 % (0.0-1.0); EOSINOPHILS # (AUTO) 0.3 (0.0-0.4); EOSINOPHILS % 4.4 % (0.0-6.0); HEMATOCRIT 34.8 % (38.2-49.6); HEMOGLOBIN 11.6 g/dL (14.0-18.0); LYMPHOCYTES # (AUTO) 1.5 (1.0-3.2); MEAN CORPUSCULAR HEMOGLOBIN 29.6 pg (28-32); MEAN CORPUSCULAR HGB CONC 33.3 g/dL (31-35); MEAN CORPUSCULAR VOLUME 88.8 fL (81-99); MONOCYTES # (AUTO) 0.7 (0.2-0.8); MONOCYTES % 10.8 % (4.4-11.3); NEUTROPHILS # (AUTO) 3.6 (2.1-6.9); PLATELET COUNT 145 x10e3/uL (140-360); RED BLOOD COUNT 3.92 x10e6/uL (4.3-5.7); RED CELL DISTRIBUTION WIDTH 13.9 % (11.7-14.4)
[2018-12-01] MEDS: HYDRALAZINE HCL 20 MG/ML VIAL IV PRN ×3 (04:08→21:56)
[2018-12-01 04:19] LABS: ANION GAP 13.5 mmol/L (8-16); CALCIUM 8.8 mg/dL (8.4-10.2); CREATININE, SERUM 1.48 mg/dL (0.72-1.25); MAGNESIUM 1.7 MG/DL (1.3-2.1); POTASSIUM 3.5 mmol/L (3.5-5.1)
[2018-12-01] MEDS: INSULIN LISPRO 100 UNIT/1 ML 3ML VIAL SQ SCH ×4 (07:30→20:45)
[2018-12-01] MEDS ORDERED: HYDRALAZINE HCL25 MG PO (07:55)
[2018-12-01] MEDS ORDERED: NIFEDIPINE ER30 M1 PO (07:55)
[2018-12-01] MEDS ORDERED: CEFDINIR300 MG PO (07:55)
[2018-12-01] MEDS ORDERED: MUCINEX DM ER1 EACH PO (07:55)
[2018-12-01] MEDS ORDERED: BENICAR20 MG PO (07:55)
[2018-12-01] MEDS ORDERED: ZITHROMAX500 MG PO (07:55)
[2018-12-01] MEDS: SUCRALFATE 1 GM TAB PO SCH ×3 (08:16→17:33)
[2018-12-01] MEDS: FAMOTIDINE 20 MG TAB PO SCH ×2 (08:16→17:33)
[2018-12-01] MEDS: GLIPIZIDE 5 MG TAB ER PO SCH ×2 (08:16→17:33)
[2018-12-01] MEDS: DOCUSATE SODIUM 100 MG CAP PO SCH ×2 (08:17→17:33)
[2018-12-01] MEDS: HYDRALAZINE HCL 25 MG TAB PO SCH ×3 (08:17→20:45)
[2018-12-01] MEDS: OLMESARTAN 20 MG TAB PO SCH (08:17)
[2018-12-01] MEDS: GABAPENTIN 300 MG CAP PO SCH ×3 (08:17→20:45)
[2018-12-01] MEDS: GUAIFENESIN 600MG/DEXTROMETHORPHAN 30MG TABSR PO SCH ×2 (08:17→20:45)
[2018-12-01] MEDS: ALLOPURINOL 300 MG TAB PO SCH (08:18)
[2018-12-01] MEDS: NIFEDIPINE CR 30 MG TAB PO SCH ×2 (08:18→17:33)
[2018-12-01] MEDS: METOPROLOL SUCCINATE 25 MG TAB XL PO SCH (08:18)
[2018-12-01] MEDS: LIPASE PO SCH ×3 (08:22→20:45)
[2018-12-01] MEDS: AMYLASE PO SCH ×3 (08:22→20:45)
[2018-12-01] MEDS: PROTEASE PO SCH ×3 (08:22→20:45)
[2018-12-01] MEDS: AZITHROMYCIN 500MG/NS 250 ML 250 ML IV SCH (08:23)
--- NOTE | 2018-12-01 09:12 | Diagnostic Imaging Report ---
History: Head CT 11/30/2018 Comparison studies: CT head 11/30/2018 Technique: Sagittal T1; axial DWI, FLAIR, MPGR, T1, Coronal FLAIR. Intravenous contrast: None Findings: Scalp: Normal in signal . No masses . Bone marrow: Normal in signal intensity. Extra-axial: No masses, no fluid collections. Brain sulci: Mildly prominent. Ventricles: Mildly prominent . No hydrocephalus . Parenchyma: Scattered T2/flair hyperintensities of the periventricular and deep white matter, nonspecific and most commonly seen with mild chronic microvascular ischemic changes. Small chronic lacunar infarct at the left cerebellar hemisphere No masses, hemorrhage, acute or chronic vascular insults. Suprasellar region: No abnormalities. Craniocervical junction: No abnormalities. Patent foramen magnum. No Chiari one malformation. Vessels: Normal flow-voids in the arteries and sinuses. IMPRESSION: 1. No acute intracranial abnormalities. 2. Mild chronic microvascular ischemic changes and mild diffuse volume loss. Signed by: DR Oscar Smallwood M.D. on 12/01/2018 9:09 AM
--- NOTE | 2018-12-01 14:38 | Progress Note ---
DATE: 12/01/2018 Cardiology Progress Note SUBJECTIVE: No major events overnight. Much less confused today. MRI of the brain did not show any acute abnormalities. OBJECTIVE: VITAL SIGNS: Temperature afebrile, pulse 68, respiratory rate 20, blood pressure 152/67 saturating 96% on room air. GENERAL: Elderly man, in no acute distress. CARDIOVASCULAR: Regular rate and rhythm. No murmurs, rubs, or gallops. LUNGS: Clear to auscultation bilaterally. ABDOMEN: Soft, nontender and nondistended. NEURO AND PSYCH: Alert and oriented to person, place, and time. Normal affect. INPATIENT MEDICATIONS: Reviewed. LABORATORY DATA: Reviewed. TELEMETRY DATA: Reviewed, shows normal sinus rhythm. ASSESSMENT: 1. Multivessel coronary artery disease awaiting outpatient coronary bypass graft surgery. 2. Pneumonia. 3. Hypertension. 4. Hyperlipidemia. 5. Delirium. PLAN: Today confusion is much better. MRI of the brain did not show any acute abnormalities. Remains stable from cardiovascular standpoint. Nifedipine has been added to improve blood pressure control. The patient will follow up in clinic with Dr. Welch one week from today. Otherwise, continue current medical regimen. Thank you for this consult. We will continue to follow. MD PHILIP Woodruff/ELTON /[id number]
--- NOTE | 2018-12-01 16:10 | NUR ---
Spoke with HEALTH CARE LAW SPECIALIST for Dr. Urbano and reported BPs for the day. Received orders to give procardia and if pt SBP is in the 150s then pt can discharge home.
--- NOTE | 2018-12-01 16:30 | NUR ---
Received V/S from PCT and BP is 186/77. is and pt are refusing to take any blood pressure medication at this time because they are saying that cardiology did not order these medications. Explained to pt and family that Cardiology is aware of medication changes and they are in agreement with the medication changes that have been made. Explained the importance of receiving BP meds at this time b/c BP is so elevated. Pt and still refused. They state they want Dr. Gregory paged. Paged Dr. Gregory at this time and waiting for call back .
--- NOTE | 2018-12-01 17:15 | NUR ---
Paged Dr. Gregory a second time and waiting for call back. Spoke with pt and with again and explained BP medication again. They agreed to go ahead and take medication for blood pressure.
--- NOTE | 2018-12-01 18:30 | NUR ---
Rechecked BP at this time 160/70. Pt still does not meet criteria for discharge at this time. Report given to night nurse that SBP must be below 160 in order for pt to discharge home. Dr. Gregory was paged again and still has not called back. Spoke with attending about situation.
--- NOTE | 2018-12-01 19:05 | NUR ---
Pt visited in room during nursing rounds. Patient alert and oriented x4. at bedside. Pt denies any discomfort or pain. Pt aware of conditional order for discharge tonight (if SBP < 160, pt can be discharged home as ordered by Erna Sorensen NP). Will monitor BP closely tonight. Pt ambulatory in room prn. Call lujan within reach.
[2018-12-01] MEDS: ASPIRIN 81 MG CHEW TAB PO SCH (20:45)
[2018-12-01] MEDS: DOXAZOSIN MESYLATE 2 MG TAB PO SCH (20:45)
[2018-12-01] MEDS: ATORVASTATIN 40 MG TAB PO SCH (20:45)
[2018-12-01] MEDS: CEFTRIAXONE SOD 1 GM/NS 50 ML 50 ML IV SCH (20:45)
--- NOTE | 2018-12-01 21:56 | NUR ---
BP check at this time was 170/85. Pt already had, Apersoline 25mg PO given at 2044. Pt now given Hyrdalazine 10mg IV (prn). Will re-check.
--- NOTE | 2018-12-01 22:45 | NUR ---
BP check was 163/85. Pt asymptomatic. Since SBP > 160, pt will be kept tonight and will be closely monitored till doctors see pt in the morning to re-evaluate. Pt and at bedside aware and agreed to stay tonight.
[2018-12-02] MEDS: ALBUTEROL/IPRATROPIUM 3 ML NEB NEB SCH ×2 (01:05→07:10)
[2018-12-02] MEDS: HYDRALAZINE HCL 20 MG/ML VIAL IV PRN (03:42)
[2018-12-02 04:00] VITALS: BP 160/80
[2018-12-02 05:15] VITALS: BP 150/75
--- NOTE | 2018-12-02 05:30 | NUR ---
Erna Sorensen on the unit and was informed about latest BP (150/75). Erna aware and stated to re-check BP in an hour and if BP better then d/c patient this morning.
[2018-12-02] MEDS ORDERED: NIFEDIPINE ER60 MG PO (05:37)
[2018-12-02 06:15] VITALS: BP 150/70
[2018-12-02] MEDS: SUCRALFATE 1 GM TAB PO SCH ×2 (06:32→08:39)
[2018-12-02] MEDS: FAMOTIDINE 20 MG TAB PO SCH (06:32)
[2018-12-02 07:43] VITALS: BP 150/70
[2018-12-02] MEDS: GLIPIZIDE 5 MG TAB ER PO SCH (08:37)
[2018-12-02] MEDS: HYDRALAZINE HCL 25 MG TAB PO SCH (08:37)
[2018-12-02] MEDS: AZITHROMYCIN 500MG/NS 250 ML 250 ML IV SCH (08:37)
[2018-12-02] MEDS: LIPASE PO SCH (08:38)
[2018-12-02] MEDS: GUAIFENESIN 600MG/DEXTROMETHORPHAN 30MG TABSR PO SCH (08:38)
[2018-12-02] MEDS: DOCUSATE SODIUM 100 MG CAP PO SCH (08:38)
[2018-12-02] MEDS: GABAPENTIN 300 MG CAP PO SCH (08:38)
[2018-12-02] MEDS: OLMESARTAN 20 MG TAB PO SCH (08:38)
[2018-12-02] MEDS: AMYLASE PO SCH (08:38)
[2018-12-02] MEDS: PROTEASE PO SCH (08:38)
[2018-12-02] MEDS: ALLOPURINOL 300 MG TAB PO SCH (08:39)
[2018-12-02] MEDS: METOPROLOL SUCCINATE 25 MG TAB XL PO SCH (08:39)
[2018-12-02] MEDS ORDERED: NIFEDIPINE CR 30 MG TAB PO SCH (09:00)
--- NOTE | 2018-12-02 10:30 | NUR ---
Pt discharged with all personal belongings. 0 s/s of acute distress noted. Pt and verbalized understanding of all discharge and follow up instructions. Pt went home with 5 prescriptions.
[2018-12-02 12:49] VITALS: BP 167/87
--- NOTE | 2018-12-02 20:34 | Discharge Summary ---
ADMISSION DIAGNOSES: Community-acquired pneumonia, present on admission; hypertension, hyperlipidemia, gout, peptic ulcer disease, benign prostatic hyperplasia, type 2 diabetes, possible urinary tract infection, present on admission; chronic pancreatitis, coronary artery disease with plan for coronary artery bypass graft x4 vessel. DISCHARGE DIAGNOSES: Community-acquired pneumonia, present on admission; hypertension, hyperlipidemia, gout, peptic ulcer disease, benign prostatic hyperplasia, type 2 diabetes, possible urinary tract infection, present on admission; chronic pancreatitis, coronary artery disease with plan for coronary artery bypass graft x4 vessel, Klebsiella pneumoniae urinary tract infection, present on admission. HISTORY: Hypertension, hyperlipidemia, gout, type 2 diabetes, benign prostatic hyperplasia, peptic ulcer disease, coronary artery disease, peripheral neuropathy, and chronic pancreatitis. SURGICAL HISTORY: Left total knee replacement, cholecystectomy, right inguinal hernia repair, and bilateral blepharoplasty. FAMILY HISTORY: The patient's mom had diabetes and cancer. The patient's dad had diabetes. SOCIAL HISTORY: Noncontributory. HOSPITAL COURSE: An 83-year-old male admits with a fever of 100.8 yesterday afternoon. Per 's report, any fever makes the patient confused and weak, so they bring him to the ER as soon as he has a fever. He denies cough and congestion. He has associated chills with dysuria. He had a heart catheterization with follow on Tuesday and needs a CABG x4-vessels. On admission, chest x-ray showed nodular opacities in the left upper lung, worrisome for pneumonia. He was started on Zithromax, Rocephin, nebs, Mucinex, and oxygen. Urine culture came back positive for Klebsiella, which was sensitive to the Rocephin, he was already getting for the pneumonia. Blood culture negative. The patient developed AMS, so CT of the brain was done, which was negative. MRI of the brain was done, which was also negative. Electrolytes were normal and ammonia level was normal, so the cause seemed to be a hospital psychosis. The patient's blood pressure became uncontrolled despite giving all of his home medicine, so the blood pressure medications had to be changed a couple of times. At time of discharge, the patient's blood pressure was controlled as well as all other vitals. The patient and understand discharge instructions and agrees to plan. He will follow up with primary care in 1 to [address] Welch on Tuesday. Vital signs are stable. The patient is afebrile. Dictated by Erna Sorensen, RN CLINICAL QUALITY MD THOMAS Rossi/MODL /[id number]
== END 2018-12-02 10:30 | disposition home or self-care (01) | DRG 194 ==
LOC: ER 15:47 → ERHOLD 21:56 → MED/SURG3 11-29 00:25
PROVIDERS: ADMIT Internal Medicine; ATTEND Internal Medicine
DX: J18.9 Pneumonia, unspecified organism (principal); N39.0 Urinary tract infection, site not specified; K86.1 Other chronic pancreatitis; I12.9 Hypertensive chronic kidney disease with stage 1 through stage 4 chronic kidney disease, or unspecified chronic kidney disease; E11.22 Type 2 diabetes mellitus with diabetic chronic kidney disease; N18.3 Chronic kidney disease, stage 3 (moderate); E78.5 Hyperlipidemia, unspecified; E11.9 Type 2 diabetes mellitus without complications; Z95.1 Presence of aortocoronary bypass graft; B96.1 Klebsiella pneumoniae [K. pneumoniae] as the cause of diseases classified elsewhere; Z87.11 Personal history of peptic ulcer disease; E11.40 Type 2 diabetes mellitus with diabetic neuropathy, unspecified; Z96.652 Presence of left artificial knee joint; R41.0 Disorientation, unspecified; N40.0 Benign prostatic hyperplasia without lower urinary tract symptoms; M10.9 Gout, unspecified
CPT/HCPCS: 36415; 70450; 70551; 71045; 71046; 80048; 80053; 81001; 82140; 82550; 82553; 82948; 83605; 83735; 83880; 84484; 85025; 85610; 85730; 87040; 87086; 87186; 93005; 94640; 96372; 99284; J0360; J0456; J0696; J7040; J7050

== ENCOUNTER → 2019-02-19 | Outpatient (CLI) | payer BC ==
[~2019-02-19] MED LIST changes: +BENICAR20 MG PO; +CEFDINIR300 MG PO; +HYDRALAZINE HCL25 MG PO; +IOPAMIDOL 370 MG/ML 200 ML INFUS..BTL INJ ONE; +MUCINEX DM ER1 EACH PO; +NIFEDIPINE ER30 M1 PO; +NIFEDIPINE ER60 MG PO; +SODIUM CHLORIDE 0.9% 100 ML ONE; +SODIUM CHLORIDE 0.9% 500ML 500 ML ONE; +ZITHROMAX500 MG PO
[2019-02-19 15:13] LABS: CREATININE, SERUM 2.06 mg/dL (0.72-1.25)
--- NOTE | 2019-02-19 17:20 | Diagnostic Imaging Report ---
ABDOMEN AND PELVIS CT WITH CTA RUNOFF PROTOCOL WITH IV CONTRAST. 3D post-processing of the images was performed, and the post-processed images were used in interpretation. COMPARISON: none available. TECHNIQUE: Abdomen and pelvis and lower extremities were scanned utilizing a multidetector helical scanner from the lung base to the toes after administration of IV contrast. Coronal and sagittal reformations were obtained. CTA protocol was performed. Scan was performed during arterial phase. IV CONTRAST: 100mL of Isovue 370 ORAL CONTRAST: Water RADIATION DOSE: Total DLP: 865.7 mGy*cm FINDINGS: VESSELS: There are moderate calcified and noncalcified atherosclerotic plaques in the aorta and its major branches. Most notably, eccentric noncalcified plaque just below the SMA origin results in approximately 50% aortic luminal narrowing. There is an infrarenal abdominal aortic dissection extending from the level of L2-3 to the aortic bifurcation. The MARIANO appears to arise from the false lumen. Dissection does not appear to involve the common iliac arteries. The celiac artery, superior mesenteric artery, and inferior mesenteric artery are patent but have mild to moderate stenosis at their origins. There is a single right renal artery and a single left renal artery, both of which are patent. Right lower extremity: The right external iliac artery is widely patent. The right common femoral artery demonstrates moderate to severe atherosclerotic plaque which results in severe focal narrowing just proximal to the femoral bifurcation. The right SFA demonstrates moderate atherosclerotic calcifications with multifocal areas of mild to moderate luminal narrowing. The popliteal artery demonstrates mild atherosclerotic calcifications with mild multifocal luminal narrowing. There is a posterior tibial artery dominant single vessel runoff to the level of the ankle. Left lower extremity: The left external iliac and common femoral artery demonstrate moderate atherosclerotic calcification and mild luminal narrowing. The left superficial femoral artery demonstrate moderate athetotic calcifications with multifocal areas of mild to moderate luminal narrowing. The left popliteal artery shows multifocal atherosclerotic calcifications with multifocal areas of mild narrowing. The midportion of the popliteal artery is not well evaluated due to streak artifact from knee arthroplasty hardware. There is a two-vessel runoff to the level of the ankle via the anterior and posterior tibial arteries. LUNG BASES: Basilar dependent subsegmental atelectasis. No focal lung base consolidation. Multichamber cardiomegaly. ABDOMEN: Small sliding hiatal hernia. 3.4 cm cyst at the hepatic dome. No other focal liver lesions. The pancreas, adrenals, and spleen appear unremarkable. Multiple bilateral simple renal cysts, the largest measuring up to 4.3 cm on the left and 2.7 cm on the right. Prostatomegaly to 5.2 cm. Sigmoid and descending colon diverticulosis without CT evidence of diverticulitis. No abnormal bowel thickening. No bowel obstruction. Normal appendix. No free air or fluid. No lymphadenopathy. BONES: No suspicious lytic or blastic lesions. Mild degenerative changes of the visualized spine. No acute osseous injury. Status post left total knee replacement. IMPRESSION: Infrarenal abdominal aortic dissection extending from L2-3 to the aortic bifurcation without definite involvement of the common iliac arteries. The MARIANO appears to arise from the false lumen. On the right, focal severe narrowing of the common femoral artery just proximal to the femoral bifurcation. Mild to moderate luminal narrowing of the right SFA. Single vessel posterior tibial artery runoff to the ankle. On the left, mild to moderate multifocal narrowing of the superficial femoral artery. Two-vessel runoff to the level of the ankle via the anterior and posterior tibial arteries. Signed by: Nelson Kilpatrick MD on 02/19/2019 5:17 PM
== END ==
LOC: CT 14:24
PROVIDERS: ATTEND Internal Medicine Interventional Cardiology
DX: I73.9 Peripheral vascular disease, unspecified (principal); I71.4 Abdominal aortic aneurysm, without rupture
CPT/HCPCS: 36415; 75635; 82565; 84520; 96360; J7040; J7050; Q9967

== ENCOUNTER → 2019-02-27 | Day surgery (SDC) | payer MEDICARE, BC ==
[2019-02-21 12:45] LABS: BASOPHILS % 0.3 % (0.0-1.0); EOSINOPHILS # (AUTO) 0.3 (0.0-0.4); EOSINOPHILS % 4.7 % (0.0-6.0); HEMATOCRIT 34.3 % (38.2-49.6); HEMOGLOBIN 11.2 g/dL (14.0-18.0); LYMPHOCYTES # (AUTO) 1.2 (1.0-3.2); LYMPHOCYTES % 18.8 % (18.0-39.1); MEAN CORPUSCULAR HEMOGLOBIN 28.6 pg (28-32); MEAN CORPUSCULAR HGB CONC 32.7 g/dL (31-35); MEAN CORPUSCULAR VOLUME 87.5 fL (81-99); MONOCYTES # (AUTO) 0.6 (0.2-0.8); NEUTROPHILS # (AUTO) 4.3 (2.1-6.9); NEUTROPHILS % 66.9 % (38.7-80.0); PLATELET COUNT 168 x10e3/uL (140-360); RED BLOOD COUNT 3.92 x10e6/uL (4.3-5.7); RED CELL DISTRIBUTION WIDTH 14.3 % (11.7-14.4)
[2019-02-21 13:10] LABS: ALBUMIN 3.4 g/dL (3.5-5.0); ALBUMIN/GLOBULIN RATIO 1.1 (0.8-2.0); ANION GAP 14.1 mmol/L (8-16); CALCIUM 9.1 mg/dL (8.4-10.2); CREATININE, SERUM 2.02 mg/dL (0.72-1.25); POTASSIUM 4.1 mmol/L (3.5-5.1)
[~2019-02-27] VITALS: Ht 177.8 cm; Wt 86.6 kg
[2019-02-27] VITALS (10 sets, daily range): BP systolic 138–191; BP diastolic 66–88
[~2019-02-27] MED LIST changes: +ALPRAZOLAM 0.5 MG TAB ONE; +AMIODARONE HCL200 MG PO; +DIPHENHYDRAMINE HCL 25 MG CAP ONE; +FENTANYL CITRATE/PF 100MCG/2 ML INJ ONE; +FUROSEMIDE40 MG PO; +HEPARIN SOD (PORCINE) 1000 UNIT/ML 30ML ONE; +HEPARIN SOD/SOD CHLORIDE 2,000 ML ONE; +IOPAMIDOL 300MG/ML 100 ML INFUS..BTL IV ONE; -IOPAMIDOL 370 MG/ML 200 ML INFUS..BTL INJ ONE; +LEVAQUIN500 MG PO; +LIDOCAINE HCL 2% LOCAL 20 ML VIAL ONE; +METOPROLOL PO; +MIDAZOLAM HCL 2 MG/2 ML VIAL ONE; +NITROGLYCERIN/D5W 200 MCG/ML 250 ML ONE; -SODIUM CHLORIDE 0.9% 100 ML ONE; +SODIUM CHLORIDE 0.9% 1000ML 1,000 ML ONE; -SODIUM CHLORIDE 0.9% 500ML 500 ML ONE; +VERAPAMIL HCL 2.5 MG/ML 2 ML VIAL ONE; +VITAMIN D PO
--- NOTE | 2019-02-27 09:15 | NUR ---
0915Received pt to room 09,bedside report received from [facility]. Alert oriented and appropriate, PERRLA, respirations even and unlabored to room air. Pulses x4 extremities equal and strong. Pedal pulses PT/DP x4 Left PT 1+ only all other palpabe pulses 2+ Cap fill brisk < 3 sec. Rt Tr band site NO gross issues pain pallor pressure or dysthymia. 11am Tr band ok to reduce air Skin warm and dry integrity appears D/I. IV 20g to left presents healthy w/o s/s of infiltration or complaint. Abdomen soft and supple. pt offered toileting, denies need to urinate or defecate. No personal affects with patient. Family at bedside. Pt and family verbalizes understanding of POC. Currently w/o complaint of pain or need. ds/rn
--- NOTE | 2019-02-27 11:00 | NUR ---
1100RADIAL Compression removal: Initial Cuff volume 12 cc 11a -2cc Removed No hematoma/bleeding noted with normal neurovascular function. 1115 -5 cc Removed No hematoma/ bleeding noted with normal neurovascular function. 1130 -5cc Removed No hematoma/bleeding noted with normal neurovascular function. Air removal completed. Stasis achieved sterile 2x2,Tegaderm, Coban dressing No hematoma, bleeding noted with normal neurovascular function. Wrist splint in place. Pt instructed on POC. Ds/Rn
--- NOTE | 2019-02-27 11:45 | NUR ---
1145Pt meets DC criteria.Rt Trband assessed for s/s of complication and presence of hematoma. Skin warm, dry, no discolor, and pulses present. IV removed from left hand. Distal tip appears intact. VS WNL. Pt denies pain, sob, or need at this time. Family at XXXXX. Review of discharge paperwork and follow up instructions. verbalized understanding. Pt to wheelchair and transported to front of hospital. Transferred to private vehicle under own strength w/o incident with DC paperwork in hand. - michael Addendum: 02/27/19 at 1831 by Siena Marie RN [id number] family at bedside for dc denies c/o access is stable aware of importance of f/o care. Back to baseline orientation Vs and ekg stable.michael
--- NOTE | 2019-02-28 08:24 | Operative Report ---
DATE OF PROCEDURE: 02/27/2019 SURGEON: Lev Welch MD PROCEDURE: Cardiac cath. INDICATION: Peripheral arterial disease. PROCEDURES PERFORMED: 1. Catheter placement in the right radial artery with abdominal aortogram, two-third order catheter placement from the right radial artery and the right femoral artery. 2. Additional third-order catheter placement in the right radial artery and the left femoral artery. 3. Atherectomy and angioplasty of the right femoral artery. 4. Angioplasty of the right iliac artery. COMPLICATIONS: None. RECOMMENDATIONS: Staged intervention of the left iliac artery. DESCRIPTION OF PROCEDURE: Access obtained in the right radial artery. A 6-Pashto sheath was placed. Abdominal aortogram demonstrated abdominal aortic dissection type B in the distal abdominal aorta with small aneurysm, 80% left iliac stenosis heavily calcified. The catheter was then advanced to the right femoral artery, 80% right iliac stenosis, 80% distal right femoral artery stenosis. The patient received heparin for anticoagulation. Orbital atherectomy of both lesions was performed with large amounts of visible thrombus, for which manual aspiration secondary thrombectomy of the right femoral artery was performed. Balloon angioplasty using a 6 mm balloon and iliac angioplasty with 8 mm balloon was performed. Excellent end result. Two-vessel runoff to the right foot. No complications. Right wrist TR band applied. The patient discharged home same day. Lev Welch MD [facility]/MODL /[id number]
== END | disposition home or self-care (01) ==
LOC: CATH LAB 06:17
PROVIDERS: ATTEND Internal Medicine Interventional Cardiology
DX: I70.201 Unspecified atherosclerosis of native arteries of extremities, right leg (principal); I25.810 Atherosclerosis of coronary artery bypass graft(s) without angina pectoris; I11.0 Hypertensive heart disease with heart failure; I50.9 Heart failure, unspecified; I48.0 Paroxysmal atrial fibrillation; G47.33 Obstructive sleep apnea (adult) (pediatric); E11.9 Type 2 diabetes mellitus without complications; Z88.0 Allergy status to penicillin; Z01.812 Encounter for preprocedural laboratory examination; Z79.82 Long term (current) use of aspirin; Z79.84 Long term (current) use of oral hypoglycemic drugs; Z68.36 Body mass index [BMI] 36.0-36.9, adult; Z95.1 Presence of aortocoronary bypass graft
CPT/HCPCS: 36415; 37186; 37220; 37225; 75710; 80053; 85025; C1724; C1769 ×2; C1887; J1644; J2001; J2250; J3010; J7030; Q9967; 36247; 75625; 99152; 99153

== ENCOUNTER → 2019-03-12 | Day surgery (SDC) | payer BC, MEDICARE ==
[2019-03-07 14:16] LABS: BASOPHILS % 0.2 % (0.0-1.0); EOSINOPHILS # (AUTO) 0.2 (0.0-0.4); EOSINOPHILS % 1.7 % (0.0-6.0); HEMATOCRIT 34.7 % (38.2-49.6); LYMPHOCYTES # (AUTO) 1.3 (1.0-3.2); LYMPHOCYTES % 11.9 % (18.0-39.1); MEAN CORPUSCULAR HEMOGLOBIN 27.8 pg (28-32); MEAN CORPUSCULAR HGB CONC 31.7 g/dL (31-35); MEAN CORPUSCULAR VOLUME 87.8 fL (81-99); MONOCYTES # (AUTO) 0.9 (0.2-0.8); MONOCYTES % 8.4 % (4.4-11.3); NEUTROPHILS # (AUTO) 8.3 (2.1-6.9); NEUTROPHILS % 77.1 % (38.7-80.0); PLATELET COUNT 162 x10e3/uL (140-360); RED BLOOD COUNT 3.95 x10e6/uL (4.3-5.7)
[2019-03-07 14:37] LABS: ALBUMIN 3.2 g/dL (3.5-5.0); ANION GAP 12.8 mmol/L (8-16); CALCIUM 9.1 mg/dL (8.4-10.2); POTASSIUM 3.8 mmol/L (3.5-5.1)
[~2019-03-12] VITALS: Ht 177.8 cm; Wt 84.8 kg
[2019-03-12] VITALS (12 sets, daily range): BP systolic 134–170; BP diastolic 55–69
[~2019-03-12] MED LIST changes: -NITROGLYCERIN/D5W 200 MCG/ML 250 ML ONE
--- NOTE | 2019-03-12 17:15 | NUR ---
Patient's reported patient takes Metoprolol succinate ER 12.5mg po bid. will update medication reconciliation.
--- NOTE | 2019-03-12 17:30 | NUR ---
IV to left hand removed and dressing placed per unit protocol. Dressing to left hand is clean,dry, and intact at this time. Dressing to right wrist is clean,dry, and intact. Patient discharged via wheelchair to private vehicle with patient's Miroslava as driver merchandiser. Patient discharged with belongings. No distress noted at time of discharge.
--- NOTE | 2019-03-12 17:42 | Operative Report ---
DATE OF PROCEDURE: 03/12/2019 SURGEON: Lev Welch MD INDICATIONS: Peripheral arterial disease. PROCEDURES PERFORMED: 1. Third-order catheter placement of right radial artery to the left iliac artery with unilateral extremity angiogram. 2. PTCA and stent placed in the left iliac artery. 3. Deployment of right wrist TR band. COMPLICATIONS: None. RECOMMENDATIONS: Medical therapy. DESCRIPTION OF PROCEDURE: Access obtained in the right radial artery. A 120 cm sheath was advanced in the right radial artery to the left iliac artery, 80% stenosis. The patient received heparin for anticoagulation. A single 10 x 60 mm LifeStar stent was deployed, post dilated with 8 mm balloon. Excellent end result, less than 10% residual stenosis in the left common iliac artery. Sheath was removed. TR band applied. The patient discharged home the same day. Lev Welch MD [facility] /[id number]
== END | disposition home or self-care (01) ==
LOC: CATH LAB 11:31
PROVIDERS: ATTEND Internal Medicine Interventional Cardiology
DX: I73.9 Peripheral vascular disease, unspecified (principal); Z01.812 Encounter for preprocedural laboratory examination; Z88.0 Allergy status to penicillin; I10 Essential (primary) hypertension
CPT/HCPCS: 36415; 37221; 80053; 85025; C1769; J1644; J2001; J2250; J3010; J7030; Q9967; C1725; C1876

== ENCOUNTER → 2020-01-08 | Day surgery (SDC) | payer BC, OTHER ==
[2020-01-04 15:07] LABS: INR 1.06; PROTHROMBIN TIME 14.3 seconds (11.9-14.5)
[2020-01-04 15:12] LABS: ANION GAP 14.1 mmol/L (8-16); CALCIUM 8.9 mg/dL (8.4-10.2); CREATININE, SERUM 2.31 mg/dL (0.72-1.25); POTASSIUM 4.1 mmol/L (3.5-5.1)
[~2020-01-08] MED LIST changes: -ALPRAZOLAM 0.5 MG TAB ONE; -DIPHENHYDRAMINE HCL 25 MG CAP ONE; -FENTANYL CITRATE/PF 100MCG/2 ML INJ ONE; -HEPARIN SOD (PORCINE) 1000 UNIT/ML 30ML ONE; -HEPARIN SOD/SOD CHLORIDE 2,000 ML ONE; -IOPAMIDOL 300MG/ML 100 ML INFUS..BTL IV ONE; -LIDOCAINE HCL 2% LOCAL 20 ML VIAL ONE; -MIDAZOLAM HCL 2 MG/2 ML VIAL ONE; +OR PHACO EYE KIT ONE; +PLAVIX75 MG PO; +PREOP PHACO EYE KIT ONE; -SODIUM CHLORIDE 0.9% 1000ML 1,000 ML ONE; -VERAPAMIL HCL 2.5 MG/ML 2 ML VIAL ONE
[2020-01-08 15:15] VITALS: BP 144/64
== END | disposition home or self-care (01) ==
LOC: OR 12:08
PROVIDERS: ATTEND Ophthalmology
DX: H25.12 Age-related nuclear cataract, left eye (principal); G47.33 Obstructive sleep apnea (adult) (pediatric); I48.91 Unspecified atrial fibrillation; I25.810 Atherosclerosis of coronary artery bypass graft(s) without angina pectoris; I25.2 Old myocardial infarction; E11.22 Type 2 diabetes mellitus with diabetic chronic kidney disease; I13.0 Hypertensive heart and chronic kidney disease with heart failure and stage 1 through stage 4 chronic kidney disease, or unspecified chronic kidney disease; N18.9 Chronic kidney disease, unspecified; I50.9 Heart failure, unspecified; K21.9 Gastro-esophageal reflux disease without esophagitis; F41.9 Anxiety disorder, unspecified; Z88.0 Allergy status to penicillin; Z01.812 Encounter for preprocedural laboratory examination; Z11.59 Encounter for screening for other viral diseases; Z79.02 Long term (current) use of antithrombotics/antiplatelets; Z79.82 Long term (current) use of aspirin; Z79.84 Long term (current) use of oral hypoglycemic drugs; Z95.1 Presence of aortocoronary bypass graft; Z95.0 Presence of cardiac pacemaker
CPT/HCPCS: 36415 ×2; 66984; 80048; 82948; 85610; 85730; U0002; V2632

== ENCOUNTER → 2020-01-22 | Day surgery (SDC) | payer BC, OTHER ==
[~2020-01-22] MED LIST changes: +FENTANYL CITRATE/PF 100MCG/2 ML INJ ONE; +HYDRALAZINE HCL 20 MG/ML VIAL ONE; +MIDAZOLAM HCL 2 MG/2 ML VIAL ONE
[2020-01-22 15:20] VITALS: BP 170/80
== END | disposition home or self-care (01) ==
LOC: OR 11:33
PROVIDERS: ATTEND Ophthalmology
DX: H25.11 Age-related nuclear cataract, right eye (principal); E11.22 Type 2 diabetes mellitus with diabetic chronic kidney disease; I13.0 Hypertensive heart and chronic kidney disease with heart failure and stage 1 through stage 4 chronic kidney disease, or unspecified chronic kidney disease; N18.9 Chronic kidney disease, unspecified; I50.9 Heart failure, unspecified; G47.33 Obstructive sleep apnea (adult) (pediatric); I25.810 Atherosclerosis of coronary artery bypass graft(s) without angina pectoris; I48.91 Unspecified atrial fibrillation; K21.9 Gastro-esophageal reflux disease without esophagitis; Z88.0 Allergy status to penicillin; Z01.812 Encounter for preprocedural laboratory examination; Z11.59 Encounter for screening for other viral diseases; Z79.82 Long term (current) use of aspirin; Z79.02 Long term (current) use of antithrombotics/antiplatelets; Z79.84 Long term (current) use of oral hypoglycemic drugs; Z95.1 Presence of aortocoronary bypass graft; Z95.0 Presence of cardiac pacemaker
CPT/HCPCS: 36415; 66984; 82948; J0360; J2250; J3010; U0002; V2632

== ENCOUNTER → 2021-04-17 | Outpatient (CLI) | payer BC ==
[~2021-04-17] MED LIST changes: -FENTANYL CITRATE/PF 100MCG/2 ML INJ ONE; -HYDRALAZINE HCL 20 MG/ML VIAL ONE; -MIDAZOLAM HCL 2 MG/2 ML VIAL ONE; -OR PHACO EYE KIT ONE; -PREOP PHACO EYE KIT ONE
== END ==
LOC: CT 14:48
PROVIDERS: ATTEND Family Medicine
DX: S09.90XA Unspecified injury of head, initial encounter (principal)
CPT/HCPCS: 70450